=== PATIENT | male | born 1990 | race African-American/Black ===

== ENCOUNTER 2020-04-19 20:54 | Inpatient (IN) | payer SELFPAY ==
[~2020-04-19] VITALS: Ht 180.3 cm; Wt 68.0 kg
--- NOTE | 2020-04-19 20:56 | NUR ---
PT GEOVANNA, HAD A SEIZURE IN THE WAITING ROOM WHILE REGISTERING. PT WAS PLACED ON THE SIDE, TRANSPORTED TO BED 1. PT PLACED ON FARMWORKER FRUIT AND PULSE OX. PT NOTED TO BE TACHY, IV PLACED LF 18G, BLOOD WORK COLLECTED, SENT TO LAB. PT FOUND TO BE POSTICTAL. AWAITING MD FOR EVAL AND ORDERS.
--- NOTE | 2020-04-19 21:03 | NUR ---
PT NOW AWAKE, SPEAKING TO THE MD.
[2020-04-19 21:27] LABS: BASOPHILS # (AUTO) 0.1 /CMM (0.0-0.2); BASOPHILS % (AUTO) 1.2 % (0.0-2.0); EOSINOPHILS % (AUTO) 0.1 % (0.0-6.0); HEMATOCRIT 46 % (39-51); LYMPHOCYTES # (AUTO) 3.3 /CMM (0.8-4.8); LYMPHOCYTES % (AUTO) 35.6 % (20.0-44.0); MEAN CORPUSCULAR HGB CONC 33 g/dl (31.0-36.0); MEAN CORPUSCULAR VOLUME 105 fL (80-96); MONOCYTES # (AUTO) 1.5 /CMM (0.1-1.30); MONOCYTES % (AUTO) 16.3 % (2.0-12.0); NEUTROPHILS # (AUTO) 4.3 /CMM (1.8-8.9); NEUTROPHILS % (AUTO) 46.8 % (43.0-81.0); PLATELET COUNT (AUTO) 158 /CMM (150-450); RED BLOOD CELL COUNT(AUTO) 4.39 MIL/uL (4.5-6.0); WHITE BLOOD COUNT (AUTO) 9.3 K/uL (4.3-11.0)
[2020-04-19] MEDS ORDERED: LEVETIRACETAM (500MG) 1,000 MG in IV NS 0.9% 100 ML IV SCH (21:30)
[2020-04-19] MEDS ORDERED: LORAZEPAM INJ 2 MG/ML VIAL IVP ONE (21:30)
[2020-04-19] MEDS ORDERED: LORAZEPAM INJ 2 MG/ML VIAL ONE (21:33)
[2020-04-19] MEDS ORDERED: LEVETIRACETAM (500MG) 500 MG/5 ML VIAL IV ONE (21:36)
--- NOTE | 2020-04-19 21:38 | NUR ---
CELESTE (MOTHER) CONTACT INFORMATION: [phone]
--- NOTE | 2020-04-19 21:39 | NUR ---
SEUN (FRIEND) CONTACT INFORMATION: [phone]
[2020-04-19 21:42] LABS: ALBUMIN 4.2 g/dL (3.4-5.0); BILIRUBIN,DIRECT 0.6 mg/dL (0.0-0.2); BILIRUBIN,TOTAL 1.4 mg/dL (0.2-1.0); CALCIUM, SERUM 9.2 mg/dL (8.5-10.1); CREATININE 1.2 mg/dL (0.6-1.3); POTASSIUM 3.5 mmol/L (3.5-5.1); TOTAL PROTEIN, SERUM 9.1 g/dL (6.4-8.2)
--- NOTE | 2020-04-19 21:50 | NUR ---
BROUGHT TO CT
--- NOTE | 2020-04-19 21:57 | NUR ---
PER PT'S MOTHER, PT STOPPED DRINKING 3 DAYS AGO, NO HX OF SEIZURE.
--- NOTE | 2020-04-19 22:00 | NUR ---
RETURN FROM RADIOLOGY
--- NOTE | 2020-04-19 22:42 | NUR ---
LAB CALLED REGARDING NEGATIVE COVID RESULT.
--- NOTE | 2020-04-19 22:43 | NUR ---
TELE 322-2
--- NOTE | 2020-04-19 22:45 | NUR ---
URINE COLLECTED SENT TO LAB.
--- NOTE | 2020-04-19 22:57 | NUR ---
REPORT GIVEN TO SILVANA RUSHING FOR ANASTACIO
[2020-04-19] MEDS ORDERED: Z GUARD REMEDY 2 OZ OINT TP PRN (23:00)
[2020-04-19] MEDS ORDERED: MAGNESIUM HYDROXIDE 30 ML UDC PO PRN (23:00)
[2020-04-19] MEDS ORDERED: ONDANSETRON HCL/PF 4 MG/2 ML VIAL IVP PRN (23:00)
[2020-04-19] MEDS ORDERED: MAG HYDROX/AL HYDROX/SIMETH 30 ML UDC PO PRN (23:00)
[2020-04-19] MEDS ORDERED: ACETAMINOPHEN 325 MG TABLET PO PRN (23:00)
[2020-04-19 23:10] VITALS: BP 129/82
--- NOTE | 2020-04-19 23:10 | NUR ---
AUTOMATION CONTROL TECHNICIANREGENERATOR OPERATOR NOTES RECEIVED REPORT FROM SILVANA CHARGE NURSE. PATIENT ADMITTED FROM ER. PATIENT A/OX4; ABLE TO MAKE NEEDS KNOWN. ON ROOM AIR AND TOLERATING WELL. EXTERNAL GRAPHICS SPECIALIST READS NSR AT 92. NOTED WITH SHAKINESS ON BUE. NOTED WITH WEAKNESS AND NOT ABLE TO AMBULATE AT THIS TIME. IV #18G TO L WRIST; NS @ 75ML/HR; PATENT AND INTACT. SKIN INTACT. PATIENT C/O 7/10 CHEST PAIN, WILL F/U WITH ONCALL SWIMMING POOL INSTALLER AND SERVICER FOR ORDERS. ALL BELONGINGS COUNTED AND RN SIGNED BELONGINGS LIST FORM. PATIENT ORIENTED TO STAFF AND ROOM. MAINTAINED NPO DIET. SAFETY MEASURES AND SEIZURE PRECAUTIONS IN PLACE; BED IN LOWEST LOCKED POSITION; SIDERAILS UPX3; CALL LIGHT WITHIN REACH, BED ALARMS ON. WILL CONTINUE PLAN OF CARE.
--- NOTE | 2020-04-19 23:21 | NUR ---
PT TRANSFERED PER ACLS PROTOCOL
[2020-04-19] MEDS ORDERED: LORAZEPAM INJ 2 MG/ML VIAL IV PRN (23:30)
[2020-04-19] MEDS: IV NS 0.9% 1,000 ML IV PRN (23:46)
[2020-04-20 00:03] LABS: LYMPHOCYTES % (MANUAL) 41 % (16-48); NEUTROPHILS % (MANUAL) 44 (42-76)
[2020-04-20 00:04] LABS: MONOCYTES % (MANUAL) 15 % (0-11.0)
[2020-04-20] MEDS ORDERED: MORPHINE SULFATE INJ 2 MG/ML DISP.SYRIN IVP ONE (00:30)
[2020-04-20 00:48] VITALS: BP 129/82
[2020-04-20] MEDS ORDERED: MORPHINE SULFATE INJ 2 MG/ML DISP.SYRIN ONE (01:00)
--- NOTE | 2020-04-20 01:06 | NUR ---
TRUCK DRIVER NOTES - PAIN MORPHINE PATIENT C/O 09/03 CHEST PAIN. NOTIFIED BRYAN BRAUN BOILER SHOP SUPERVISOR AND ORDERED MORPHINE 1G IVP ONCE. ADMINISTERED MEDICATION AND WILL CONTINUE TO MONITOR FOR PAIN. MEDICATION DISCREPANCY ERROR MADE ON OMNICELL. CLOSED MED DRAWER AND DID NOT PULL MEDICATION. COUNTED MEDICATIONS WITH MURPHY PINA CHARGE NURSE AND RESOLVED MEDICATION DISCREPANCY.
[2020-04-20] MEDS ORDERED: CEFTRIAXONE 1 G in IV D5W 50 ML IV SCH (02:00)
[2020-04-20] MEDS ORDERED: CEFTRIAXONE 1 G VIAL ONE (02:55)
[2020-04-20 04:00] VITALS: BP 135/82
[2020-04-20] MEDS ORDERED: CALCIUM CARBONATE 500 MG TAB.CHEW PO ONE (04:00)
[2020-04-20 07:11] LABS: BASOPHILS % (AUTO) 0.5 % (0.0-2.0); EOSINOPHILS % (AUTO) 0.1 % (0.0-6.0); HEMATOCRIT 40 % (39-51); HEMOGLOBIN 13.7 g/dL (13.5-17.5); LYMPHOCYTES # (AUTO) 0.9 /CMM (0.8-4.8); LYMPHOCYTES % (AUTO) 10.8 % (20.0-44.0); MEAN CORPUSCULAR HGB CONC 34 g/dl (31.0-36.0); MEAN CORPUSCULAR VOLUME 100 fL (80-96); MONOCYTES # (AUTO) 0.9 /CMM (0.1-1.30); MONOCYTES % (AUTO) 10.7 % (2.0-12.0); NEUTROPHILS # (AUTO) 6.4 /CMM (1.8-8.9); NEUTROPHILS % (AUTO) 77.9 % (43.0-81.0); PLATELET COUNT (AUTO) 119 /CMM (150-450); RED BLOOD CELL COUNT(AUTO) 4.04 MIL/uL (4.5-6.0); WHITE BLOOD COUNT (AUTO) 8.2 K/uL (4.3-11.0)
--- NOTE | 2020-04-20 07:37 | NUR ---
SLACKLINE OPERATOR CLOSING NOTES PATIENT A/OX4; ABLE TO MAKE NEEDS KNOWN. ON ROOM AIR AND TOLERATING WELL. EXTERNAL STONEWORKING SANDER READS NSR AT 70'S. IV #18G TO L WRIST; NS @ 75ML/HR; PATENT AND INTACT. SKIN INTACT. MAINTAINED NPO DIET. SAFETY MEASURES AND SEIZURE PRECAUTIONS IN PLACE; BED IN LOWEST LOCKED POSITION; SIDERAILS UPX3; CALL LIGHT WITHIN REACH, BED ALARMS ON. WILL CONTINUE PLAN OF CARE. ENDORSE PLAN OF CARE TO ONCOMING RN/
--- NOTE | 2020-04-20 07:37 | NUR ---
MS/RN OPENING NOTE RECEIVED PATIENT FROM PERSONAL PROPERTY APPRAISER NURSE PATIENT IN BED ASLEEP, EASILY WOKEN UP. A/O X4. NO ACUTE DISTRESS NOTED AT THIS TIME. PATIENT ON ROOM AIR, TOLERATING WELL. NO SOB NOTED, BREATHING EVEN, NON LABORED. SAFETY MEASURE IN PLACE, BED LOCKED AND IN LOWEST POSITION, CALL LIGHT WITHIN REACH. WILL CONTINUE TO MONITOR AND ENSURE SAFETY.
[2020-04-20 07:51] LABS: CALCIUM, SERUM 8.7 mg/dL (8.5-10.1); CREATININE 0.9 mg/dL (0.6-1.3); MAGNESIUM 2.3 mg/dL (1.8-2.4); PHOSPHORUS 3.2 mg/dL (2.5-4.9); POTASSIUM 3.5 mmol/L (3.5-5.1)
[2020-04-20 08:00] VITALS: BP 147/97
[2020-04-20 08:03] LABS: THYROID STIMULATING HORMONE 3.173 uIU/mL (0.358-3.74)
[2020-04-20] MEDS ORDERED: Thiamine 100 MG in IV D5W 50 ML IV SCH (09:00)
[2020-04-20] MEDS ORDERED: PANTOPRAZOLE 40 MG VIAL IV SCH (09:00)
[2020-04-20] MEDS: FOLIC ACID 1 MG TABLET PO SCH (09:20)
[2020-04-20] MEDS: MULTIVITAMINS,THERAGRAN 1 UDTAB TABLET PO SCH (09:20)
[2020-04-20] MEDS: LEVETIRACETAM (500MG) 500 MG in IV NS 0.9% 100 ML IV SCH ×2 (09:22→21:04)
--- NOTE | 2020-04-20 10:54 | NUR ---
MS/RN NOTE WHEN ASSESS IV MEDICATION PATIENT REPORTED TO HAVE EMESIS INTO URINAL, 450CC. PATIENT STATED FEELING BETTER AFTER EMESIS, NO COMPLAINTS OF NAUSEA OR VOMITING AT THIS TIME PER PATIENT.
[2020-04-20] MEDS: IV NS 0.9% 1,000 ML IV PRN (15:38)
[2020-04-20 16:00] VITALS: BP 151/88
--- NOTE | 2020-04-20 16:30 | NUR ---
SS Consult: SS Consult requested for Code status & ETOH Abuse. The pt. is a 29-year old Black male seekind medical care for seizures. SW met with pt. at bedside. The pt. is alert & oriented x 4 and makes appropriate eye contact. Patient inquired about DNI status. SW explained DNI. Pt. stated he want to remain full code. Noted. Patient stated he is currently seeking medical Tx for alcohol intoxication. SW explored pt.s drinking habits. Pt. stated he drinks Cognac every other day & drinks a lot. Pt. stated that his support system is his mother, Jennifer Fisher who is concerned regarding his drinking habits. SW completed Alcohol intervention with pt. SW provided pt. addiction resources and patient accepted them. Pt. stated he is interested in outpatient programs. Patient stated he will contact an agency of his choice. The pt. denies SI/HI & denies hallucinations. The pt. remained calm & cooperative throughout interview. Substance Abuse resources provided included: [facility] ([facility]) ; [facility] [address] [facility] [place] [id number] ; [facility] [address] [facility] [address] ; [facility] [address] [facility] [id number] ; [facility] [address] [facility] [address] ; [facility] [address] [facility] [address] ; [facility] [address] [facility] [address] ; [facility] ; [facility] ; [facility] [place]; [facility] [place]; [facility] [place]; [facility] [place]; [facility] [place] [place]; [facility] [place]; [facility], [facility]. [place]; Alcoholics Anonymous [facility]; [facility] ; Marijuana Anonymous [facility]; Narcotics Anonymous [email or web address].[email or web address]; Addendum: 04/20/20 at 1632 by EFFIE ALEXANDER Pt.stated he lives with his mother at [[address] [place] [address]. [facility] [address] ;[phone]]
--- NOTE | 2020-04-20 19:33 | NUR ---
MS/RN CLOSING NOTE PATIENT IN BED AWAKE. A/O X4. NO ACUTE DISTRESS NOTED AT THIS TIME. PATIENT ON ROOM AIR, TOLERATING WELL. NO SOB NOTED, BREATHING EVEN, NON LABORED. SAFETY MEASURE IN PLACE, BED LOCKED AND IN LOWEST POSITION, CALL LIGHT WITHIN REACH. ALL NEEDS MET THROUGHOUT THE SHIFT. WILL ENDORSE TO DOOR FITTER NURSE.
[2020-04-20 20:00] VITALS: BP 137/94
--- NOTE | 2020-04-20 20:00 | NUR ---
RN NOTES RECEIVED PT. AWAKE ON BED, A/OX4, SR ON TELE MONITOR HR-78, DENIES PAIN, NO SOB, CALL LIGHT WITHIN REACH, SIDERAILSUPX2, CONTINUE TO MONITOR
[2020-04-21] VITALS: BP 150/97
[2020-04-21 04:00] VITALS: BP 142/91
[2020-04-21] MEDS: IV NS 0.9% 1,000 ML IV PRN (04:53)
--- NOTE | 2020-04-21 06:20 | NUR ---
RN NOTES AWAKE, DENIES PAIN, NO SOB, MORNING CARE RENDERED, CALL LIGHT WITHIN REACH, SIDERAILSUPX2, PT. NEEDS ATTENDED
[2020-04-21 07:09] LABS: BASOPHILS % (AUTO) 0.6 % (0.0-2.0); EOSINOPHILS % (AUTO) 1.6 % (0.0-6.0); HEMATOCRIT 38 % (39-51); HEMOGLOBIN 12.8 g/dL (13.5-17.5); LYMPHOCYTES # (AUTO) 1.3 /CMM (0.8-4.8); LYMPHOCYTES % (AUTO) 24.2 % (20.0-44.0); MEAN CORPUSCULAR HGB CONC 34 g/dl (31.0-36.0); MEAN CORPUSCULAR VOLUME 99 fL (80-96); MONOCYTES # (AUTO) 0.6 /CMM (0.1-1.30); MONOCYTES % (AUTO) 10.3 % (2.0-12.0); NEUTROPHILS # (AUTO) 3.5 /CMM (1.8-8.9); NEUTROPHILS % (AUTO) 63.3 % (43.0-81.0); PLATELET COUNT (AUTO) 99 /CMM (150-450); RED BLOOD CELL COUNT(AUTO) 3.81 MIL/uL (4.5-6.0); WHITE BLOOD COUNT (AUTO) 5.5 K/uL (4.3-11.0)
[2020-04-21] MEDS ORDERED: PANTOPRAZOLE 40 MG TABLET.DR PO SCH (07:30)
[2020-04-21] MEDS ORDERED: CHLO25CA22 PO (07:41)
[2020-04-21 07:54] VITALS: BP 156/107
--- NOTE | 2020-04-21 08:00 | NUR ---
RN OPENING NOTE PT IS A/O X3 AND BULGARIAN SPEAKING. ABLE TO MAKE NEEDS KNOWN TO NURSES. CURRENTLY ON RA. NO SOB OR RESPIRATORY DISTRESS PRESENT. AMBULATORY AND ABLE TO DO TOILETING. SKIN IS INTACT. HL PRESENT ON L WRIST, 18 G. SAFETY MEASURES IN PLACE. SIDE RAILS RAISED. BED LOWERED. CALL LIGHT WITHIN REACH. WILL CONTINUE TO MONITOR.
[2020-04-21 08:51] LABS: CALCIUM, SERUM 8.5 mg/dL (8.5-10.1); CREATININE 0.8 mg/dL (0.6-1.3); MAGNESIUM 1.8 mg/dL (1.8-2.4); PHOSPHORUS 2.8 mg/dL (2.5-4.9); POTASSIUM 3.1 mmol/L (3.5-5.1)
[2020-04-21] MEDS ORDERED: THIAMINE HCL 100 MG TABLET PO SCH (09:00)
[2020-04-21] MEDS ORDERED: LEVETIRACETAM (250 MG) 250 MG TABLET PO SCH (09:00)
[2020-04-21] MEDS: FOLIC ACID 1 MG TABLET PO SCH (09:00)
[2020-04-21] MEDS: MULTIVITAMINS,THERAGRAN 1 UDTAB TABLET PO SCH (09:00)
[2020-04-21] MEDS ORDERED: POTASSIUM CHLORIDE 20 MEQ TAB.PRT.SR PO ONE (10:30)
--- NOTE | 2020-04-21 12:53 | NUR ---
DIRECTOR TELEMETRY NOTE PT DISCHARGED HOME. LEFT VIA PRIVATE CAR ACCOMPANIED BY HIS MOTHER. EXITCARE EDUCATION GIVEN. MEDICATION EDUCATION GIVEN. PRESCRIPTIONS GIVEN. HL REMOVED. ID BAND REMOVED. PT DISCHARGED IN STABLE CONDITION.
== END 2020-04-21 13:00 | disposition home or self-care (01) | DRG 101 ==
LOC: ER 21:01 → TELE 22:44
PROVIDERS: ADMIT Registered Nurse; ATTEND Family Medicine
DX: G40.509 Epileptic seizures related to external causes, not intractable, without status epilepticus (principal); F10.239 Alcohol dependence with withdrawal, unspecified; F12.10 Cannabis abuse, uncomplicated; F41.9 Anxiety disorder, unspecified; I45.81 Long QT syndrome; Z72.0 Tobacco use; Y90.0 Blood alcohol level of less than 20 mg/100 ml; F19.10 Other psychoactive substance abuse, uncomplicated; F10.229 Alcohol dependence with intoxication, unspecified
CPT/HCPCS: 36415; 70450-TC; 71045-TC; 80048-TC; 80061-TC; 80076-TC; 82962-TC; 83735-TC; 84100-TC; 84443-TC; 85025-TC; 85730-TC; 87081-TC; 92507-TC; 92521; C9113; C9803; G0378; G0480; J0696; J1953; J2060; J2270; J3411; J7030; J7060